=== PATIENT | male | born 1985 | race Caucasian/White ===

== ENCOUNTER 2018-10-06 17:58 | Inpatient (IN) | payer MEDICAID ==
--- NOTE | 2018-10-06 18:47 | EDPHY ---
H & P Stated Complaint: Hearing voices saying "to hurt myself". - Personal History Current Tetanus Diphtheria and Acellular Pertussis (TDAP): Yes - Medical/Surgical History Hx Asthma: No Hx Chronic Respiratory Disease: No Hx Diabetes: No Hx Cardiac Disease: No Hx Renal Disease: No Hx Cirrhosis: No Hx Alcoholism: No Hx HIV/AIDS: No Hx Splenectomy or Spleen Trauma: No Other PMH: Bipolar. schitzophrenia. - Social History Smoking Status: Current every day smoker Time Seen by Provider: 10/06/18 18:38 HPI/ROS: CHIEF COMPLAINT: "The voices are telling me to hang myself" HISTORY OF PRESENT ILLNESS: 33-year-old homeless male history of schizophrenia walked to the ER complaining of increasing auditory hallucinations telling him to hang himself. He feels that if he leaves the ER he will act on these hallucinations. He denies attempt. Has remote history of suicide attempt. He has been compliant with Zyprexa. He denies: Chest pain, headache, visual hallucination, nausea, vomiting, trauma. REVIEW OF SYSTEMS: 10 systems reviewed and negative with the exception of the elements mentioned in the history of present illness PAST MEDICAL & SURGICAL HISTORY: Schizophrenia SOCIAL HISTORY:Homeless. Denies alcohol or drug use PHYSICAL EXAM (Prior to examination, patient consented to physical exam, hands were washed and my usual and customary physical exam procedures followed) 1) GENERAL: poorly kept, alert and oriented. Appears to be in no acute distress. 2) HEAD: Normocephalic, atraumatic 3) HEENT: Pupils equal, round, reactive to light bilaterally. Sclera anicteric. Nasopharynx, oropharynx, clear, no lesions. MoistDry mucous membranes. Ears bilaterally with normal tympanic membranes. 4) NECK: Full range of motion, no meningeal signs. 5) LUNGS: Clear auscultation bilaterally, no wheezes, no rhonchi, no retractions. 6) HEART: Regular rate and rhythm, no murmur, no heave, no gallop. 7) ABDOMEN: No guarding, no rebound, no focal tenderness, negative McBurney's, negative Moreira's, negative Rovsing's, negative peritoneal sign, 8) MUSCULOSKELETAL: Moving all extremities, no focal areas of tenderness, no obvious trauma. No peripheral edema or discoloration. 9) BACK: No CVA tenderness, no midline vertebral tenderness, no fluctuance, no step-off, no obvious trauma, no visual or palpable abnormality. 10) SKIN: No rash, no petechiae. 11) Psychiatric: Patient is oriented X 3, there is no agitation. Fixed facial expression, under active physical activity DIFFERENTIAL DIAGNOSIS: In no particular order including but not limited to suicidal ideation, homicidal ideation, hallucination (Carola Santiago) Constitutional: Initial Vital Signs Temperature (C) 36.5 C 10/06/18 18:03 Heart Rate 106 H 10/06/18 18:03 Respiratory Rate 16 10/06/18 18:03 Blood Pressure 116/82 H 10/06/18 18:03 O2 Sat (%) 96 10/06/18 18:03 O2 Delivery Mode Room Air Allergies/Adverse Reactions: No Known Allergies Allergy (Verified 10/07/18 11:58) Home Medications: Medication Instructions Recorded OLANZapine [Zyprexa] 20 mg PO HS 10/06/18 Medical Decision Making ED Course/Re-evaluation: 6:45 p.m.: In Consultation with Dr. Rafael Hubbard patient has been placed on M1 hold as he endorses active suicidal ideation with plan to hang himself. Care of patient under supervision of secondary supervising physician Dr Rafael Hubbard with whom I discussed case. Midnight: Care turned over to Dr. Dennis Otero. (Carola Santiago) 0700AM: No acute events overnight. Signed over to Dr. Watt. (Dennis Otero ) I did not see this patient while he was in the emergency department. However his care was discussed with the PA while the patient was in the department. I agree with treatment plan and management (Rafael Hubbard) Other Provider: Assumed care of this patient at 7:00 a.m., change of shift, from Dr. Dennis Otero. We are awaiting an eval. Patient is currently on an M1 hold. 11:45Informed by Mohinder with TLC the patient has been accepted at [address] [place] [address], [address]. Giovany Crocker accepting physician. (Raafela Watt) - Data Points Laboratory Results: Laboratory Results 10/06/18 18:45 10/06/18 18:45 Medications Given: Nicotine Polacrilex (Nicorette) 2 mg B Q1HR PRN PRN Reason: Nicotine withdrawal Stop: 04/05/19 12:53 Last Admin: 10/09/18 09:45 Dose: 2 mg Olanzapine (Zyprexa Zydis) 15 mg PO HS GREGORY Stop: 04/06/19 20:59 Last Admin: 10/09/18 20:42 Dose: 15 mg Discontinued Medications Olanzapine (Zyprexa Zydis) 10 mg PO HS GREGORY Stop: 04/06/19 20:59 Last Admin: 10/08/18 19:59 Dose: 10 mg Departure - Departure Disposition: [facility] IP Clinical Impression: Schizophrenia, Suicidal ideation Condition: Fair
[2018-10-06 19:13] LABS: PLATELET COUNT 199 10^3/uL (150-400)
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
--- NOTE | 2018-10-07 12:48 | ASMTTCLDSP ---
TLC Discharge Disposition Disposition: Answers: Admit Disposition Notes: Notes: Admit 3N. Discharge Concerns/Recommendations: Notes: In consultation with [facility] ED physician, Rafaela Watt MD and on-call psychiatrist, Giovany Crocker MD, both concurred that pt appears to meet 27-65 criteria requiring psychiatric hospitalization as pt appears to be at risk of harm to self due to a mental illness condition. Pt was given the 3N prohibited belongings list while in the ED. Was patient given the Answers: Yes Inpatient Behavioral Health Prohibited Belongings List while in the ED? For inpatient Giovany Crocker MD admission, the following psychiatrist agreed to accept patient for admission to Behavioral Health ([facility]): Type of Hold: Answers: M1/72-hour Hold Hold initiated by: Answers: ED Physician Date Signed: 10/07/2018 12:48 PM Electronically Signed By:Mohinder Zurita
[2018-10-07] MEDS ORDERED: OLANZapine DISINTEGR 10 MG TAB PO PRN (12:54)
[2018-10-07] MEDS ORDERED: MAGNESIUM HYDROXIDE 30 ML UDCUP PO PRN (12:54)
[2018-10-07] MEDS ORDERED: MAG HYDROX/AL HYDROX/SIMETH 30 ML UDCUP PO PRN (12:54)
[2018-10-07] MEDS ORDERED: ACETAMINOPHEN 325 MG TAB PO PRN (12:54)
[2018-10-07] MEDS ORDERED: LORazepam 0.5 MG TAB PO PRN (12:54)
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
[2018-10-08] MEDS: NICOTINE POLACRILEX 2 MG GUM B PRN (08:59)
--- NOTE | 2018-10-08 09:09 | ASMTBHMTP ---
Master Treatment Plan Master Treatment Plan Answers: Depressed Mood with for: Suicidal Ideation Date: 10/08/2018 Diagnosis on Admission: Schizoaffective Disorder, depressive type 295.70 Expected length of stay: 3-5 Days Reason for admission: Notes: Per TLC Evaluation - Pt. is a 33 year old, homeless, unemployed, male with reported history of schizoaffective disorder - depressed type, PTSD, and marijuana use, self presented last evening to [facility] ED and was then placed on M1 hold by ED provider which noted "Alfred complaining of audio hallucinations telling him to hang himself and wants to act on these hallucinations. He is an imminent danger to himself". At frequent times during the interview, pt appeared to be responding to internal stimuli and acknowledged he was still hearing voices telling him to kill himself. Patient's stated presenting problems: Notes: Pt reports he was "feeling suicidal" adding he was thinking of "jumping in front of traffic". Patient's goals for treatment: Notes: "To not feel that way anymore" Patient's strengths: Notes: "Cook good", and "get place to place really good". Identify supports outside of hospital: Notes: "No one" Discharge criteria: Notes: Suicidal ideation will resolve and patient will have a plan to safely manage recurrent suicidal ideation. Initial disposition plan/considerations: Notes: "Need to go home to [place] to see my family" Master Treatment Plan Required Signatures Psychiatrist signature: Answers: Psychiatrist: RN on-shift signature: Answers: RN: Patient signature: Answers: Patient: Date Signed: 10/08/2018 09:09 AM Electronically Signed By:Ashanti Borja
--- NOTE | 2018-10-08 09:48 | PDMN ---
Medical Necessity Medical [place] [id number] Schizophrenia Spectrum Disorders, Adult: Inpatient Care: 33 yo w/ schizoaffective d/o, depressive type, risk of harm to self, on M1 hold, pt is homeless.
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
--- NOTE | 2018-10-08 11:22 | ASMTCMCOM ---
CM Note CM Note Notes: Pt and CC completed MTP and placed in pt's chart. Pt. denied any current legal issues. Pt. denied all alcohol use. Pt. reports smoking THC "almost everyday" adding he last smoking on . Pt. denied all other substance use. Pt. reports his last hospitalization was "over a year ago...June 2017" adding it was in [place]. Pt. denied HI, AVH and paranoia. Pt. reports SI, rating it a "6 or 7" out of 10, with no plan and contracts for safety. Pt. stated sitting on his hands or distracting himself helps with his SI. Pt. stated he plans to travel back to [place] to see family. Pt. stated he will be able to afford a bus ticket on the first of the month with his SSI check. Pt. presents as alert, calm, good eye contact, distracted at times, and cooperative. Staff report pt. sleeping 7.5 hours and being medication compliant. Pt. attended treatment team meeting this morning and stated he does not want CC to secure follow up appointments in [place], stating he will be leaving the state soon and with follow up in [place]. Date Signed: 10/08/2018 11:21 AM Electronically Signed By:Ashanti Borja
[2018-10-08] MEDS ORDERED: OLANZapine DISINTEGR 10 MG TAB PO SCH (21:00)
[2018-10-09] MEDS ORDERED: OLANZapine DISINTEGR 10 MG TAB PO SCH (08:11)
--- NOTE | 2018-10-09 08:16 | SOAPPROG ---
SOAP Progress Note Assessment/Plan: Assessment: Major Depressive Disorder, Severe, with mood congruent psychotic features. Homelessness. Improvement noted (see subjective/objective note). Patient could benefit from continued inpatient hospitalization for crisis stabilization , safety, and medication evaluation. Consider discharge tomorrow. Plan: 1. Psychotropic medications: After reviewing options, risks, and benefits patient agrees to continue current medications with following changes: Increase Zyprexa Zydis to 15 mg po QHS. No other medication changes at this time as more time is needed to determine ongoing tolerability and efficacy. Plan is to continue to observe patient for response and side effects from medications, and ongoing monitoring and evaluation. 2. Review with patient informed consent and recommendations for psychotropic medication treatment listed below 3. Labs: no additional labs at this time 4. Therapy: continue milieu and group therapy 5. Further investigation including gathering information from patients relatives and review of past case records to inform treatment plan. 6. Safety/Wellness plan and follow-up outpatient appointments to be established prior to discharge. Next steps are for patient to meet with manager wound care to plan a safe discharge plan and establish outpatient services for ongoing treatment. 7. Confer with inpatient treatment team regarding treatment plan. 8. Psychosocial stressors addressed through continuous pillowcase cutter. 9. Legal status: M1 10. Consider discharge on Saturday if patient is in stable condition, safe, and has a safe discharge plan. 11. Substance abuse interventions: cannabis PSYCHOTROPIC MEDICATION TREATMENT INFORMED CONSENT and RECOMMENDATIONS: Review nature of condition, diagnosis, and prognosis. Review nature and purpose of psychotropic medication treatment. Review type of psychotropic medications being ordered. Review risk and benefits of psychotropic medication treatment. Review probable length of time patient will need to take medications. Review risk and benefits of not undergoing psychotropic medication treatment. Review alternative treatments to psychotropic medications. Review psychotropic medications contraindications, drug-drug interactions, side effects, and importance of reporting any side effects to a psychiatric provider or nurse during inpatient hospitalization, and upon discharge to patients psychiatric outpatient provider, primary care provider, or other health geriatric personal care aide. Review importance of asking a nurse, psychiatric provider, or primary care provider any questions or problems concerning the psychotropic medications. Verify patient understands the information that has been provided, and understands, accepts, and agrees to psychotropic medications. Review patients safety plan and importance of patient to report to staff while hospitalized if patient is ever a danger to self/others, or unable to care for self, and upon discharge, the importance for patient to contact [facility] or [facility], or go to the nearest emergency room, if patient is ever a danger to self/others, or unable to care for self. Recommend that upon discharge patient establish medication management treatment with a psychiatric provider, establishes routine therapy appointments, and follow-up with primary care provider. Verify patient understands and agrees to these recommendations. 10/09/18 08:15 Subjective: Following up with patient for evaluation of depression, psychosis, and safety. Patient reports, "Feeling better, not as depressed." Patient expresses the following psychiatric symptoms moderate depression. Patient reports taking medications as prescribed, and describes response to medications as fair. Patient does not report undesirable side effects from the medications, and agrees to continue current medications, and agrees to increase Zyprexa Zydis to 15 mg po QHS. Patient describes getting 8 hours of sleep. Objective: Vital Signs Temp Pulse Resp BP Pulse Ox 36.7 C 68 16 115/69 96 10/09/18 06:00 10/09/18 06:00 10/09/18 06:00 10/09/18 06:00 10/09/18 06:00 NURSING REPORT: Consulted with nursing for update on patients progress in treatment. Nurses report patient is engaged in treatment, is attending groups, slept 8 hours, expresses the following psychiatric symptoms: depression, exhibits the following psychiatric symptoms: none, is eating all meals, is agreeable to medications and taking as prescribed with no report of side effects , with no s/s of EPS/akathisia, and denies SI/HI, denies A/V hallucinations, and denies delusions. MSE: The patient is a well-nourished male looking stated chronological age. Attire is appropriate dress is casual. Grooming status is appropriate. Ambulation is independent. Gait is normal and coordinated. Posture is normal and relaxed. Eye contact is appropriate. Motor activity is appropriate with purposeful, organized, coordinated movements; with no involuntary movements. Attitude is cooperative. Patient appears attentive and relates well to this interviewer. Language production is spontaneous. R/R/V normal. Articulation is clear. Patient reports mood as depressed with congruent affect. Patients thought process is linear and logical with no signs of thought disorder. Patient does not report suicidal/homicidal thoughts, ideas, or plans. Patient denies auditory, visual hallucinations. Patient does not report delusions. Patient does not appear to be attending to internal stimuli. Patients attention and concentration are adequate. Patient is oriented to person, place , time. Patients insight is fair. Patients judgment is fair. SUBSTANCE ABUSE BRIEF INTERVENTION: Brief intervention regarding the risks of cannabis abuse is provided to patient with goal to reduce the risk of harm that could result from the continued use of cannabis, with the general aim to investigate the problem, raise awareness of problem, develop a solution with the patient, recommend a specific change or activity, and motivate the patient toward change. Assess substance abuse behavior and give supportive advice about harm reduction, recommend a reduction in hazardous/at-risk consumption patterns, and facilitate referrals for additional specialized treatment with out of school hours care worker. Intermediate goal is for the patient to quit and attend outpatient substance abuse treatment. Intervention focus on intermediate goals to allow for more immediate success in the treatment process to keep the patient motivated. Review following with patient: Cannabis use risks: Short- term use: impaired short-term memory, impaired motor coordination, altered judgement, in high doses paranoia and psychosis. Long-term use addiction, diminished life satisfaction and achievement, symptoms of chronic bronchitis, and increased risk of chronic psychosis disorders if predisposition to such disorders. In withdrawal anger, aggression irritability, anxiety and nervousness, decreased appetite or weight loss, restlessness, and sleep difficulties with strange dreams. OUTPATIENT SUBSTANCE ABUSE TREATMENT: Patient referred to outpatient provider and treatment for continued treatment related to substance abuse. - Time Spent With Patient Time Spent With Patient: 15 minutes, met with patient individually. - Pending Discharge Pending Discharge Within 24 Hours: Yes Pending Discharge Within 48 Hours: No Pending Discharge Date: 10/10/18 Pending Discharge Time: 11:00 ICD10 Worksheet Patient Problems: Problems Problem Status Onset Unspecified psychosis Acute Major depressive disorder Chronic PTSD (post-traumatic stress disorder) Chronic
[2018-10-09] MEDS: NICOTINE POLACRILEX 2 MG GUM B PRN (09:45)
--- NOTE | 2018-10-09 13:34 | ASMTCMCOM ---
CM Note CM Note Notes: The client reported that he is "traveling through" and plans to go to [place] upon discharge. He was encouraged to follow up with providers where he settles. The patient rates himself a 6/10 on the suicide scale. He requested the dates/times for walk-in support at [facility]. According to [facility] staff, he is completing 100% of his meals. He slept "9" hours overnight. He is medication compliant. He is attending groups; appropriate and engaged in the milieu. Date Signed: 10/09/2018 01:34 PM Electronically Signed By:Emilee Farris
[2018-10-10 06:52] VITALS: BP 111/70
[2018-10-10] MEDS: NICOTINE POLACRILEX 2 MG GUM B PRN (10:44)
--- NOTE | 2018-10-10 12:38 | BDS ---
REASON FOR ADMISSION: From the ED note dated 10/06/2018, patient, homeless male with history of schizophrenia, walked to the ER complaining of increasing auditory hallucinations telling him to hang himself. The patient was admitted involuntarily on an M1 hold due to being a danger to himself. The patient was admitted for safety, crisis stabilization, and medication management. ADMITTING DIAGNOSES: 1. Major depressive disorder, severe, with mood congruent psychotic features. 2. Posttraumatic stress disorder. 3. Cannabis use disorder, mild dependence. 4. Homelessness. ADMISSION PHYSICAL EXAM: Patient was seen for an Internal Medicine consultation on 10/07/2018, for medical clearance for inpatient psychiatric hospitalization and treatment. The patient was medically cleared for inpatient psychiatric hospitalization and treatment. For further details, please refer to consultation note dated 10/07/2018. ADMISSION LABS: From the 10/06/2018: 1. CBC within normal limits, except white blood cells were elevated at 9.93. Neutrophils were elevated at 75.6. Absolute neutrophils were elevated at 7.5. 2. BMP within normal limits. 3. Hemoglobin A1c within normal limits at 5.1. 4. Liver function within normal limits. 5. Lipid panel within normal limits, except LDL cholesterol calculated was elevated at 130. Non-HDL cholesterol was elevated at 144. 6. Toxicology screen nonnegative for THC, negative for all other substances screened, and negative for ethyl alcohol. MAJOR PROCEDURES OR TESTS: None. HOSPITAL COURSE: The most prominent symptoms and behaviors while the patient was here were reports of severe depression accompanied by command auditory hallucinations. Treatment modalities utilized were milieu and group therapy. Patient reported good response from Zyprexa 20 mg p.o. q.h.s. in the past, and Zyprexa Zydis 10 mg p.o. q.h.s. was started and titrated to 20 mg p.o. q.h.s. at time of discharge. Zyprexa was tolerated with no report of side effects and with good response. The patient has improved considerably, with no signs of psychiatric symptoms and no psychiatric symptoms expressed at time of discharge. The patient reports he has improved since admission, states to be in stable condition, feels safe to discharge, and he contracts for safety. Patient's response to treatment was good. There were no adverse or unexpected results of treatment. The patient was safe throughout his stay, active in treatment, engaged in groups, and was appropriate with staff and other patients. The patient met with the treatment team prior to discharge to assess readiness to discharge and review discharge plan. The treatment team consensus is the patient is in stable condition, has a safe discharge plan, and is ready to discharge today. CONDITION ON DISCHARGE: Patient is in stable condition and is no longer a danger to self or others, and is not gravely disabled due to mental illness. Patient is no longer in need of inpatient level of care, and can be safely and effectively treated within the community. The patients level of risk at time of discharge is low. MSE: The patient is casually dressed and with good hygiene , and looks stated age. Patient is sitting, posture is upright, and position is relaxed. Patient appears awake, alert, and responds appropriately and reasonably during interview. Patient is engaged, relates well to interviewer, and emotional facial expression is appropriate to situation and changes appropriately with topic. Patient is cooperative, makes comfortable eye contact , and movements are voluntary, deliberate, coordinated, and smooth and even with no inappropriate movements. Patient makes laryngeal sounds effortlessly and shares conversation appropriately; pace of conversation is appropriate, and stream of talking is fluent; articulation is clear and understandable; word choice is effortless and appropriate for education level; completes sentences, occasionally pausing to think; rate and volume are appropriate for interview and setting. Patient reports mood as euthymic. Patients affect is stable with full variable range, congruent with mood, and appropriate to speech and circumstances. Patient has linear and logical thinking, with no loose associations, tangential thought, thought blocking, concrete thinking, or any other signs of formal thought disorder. Patient denies suicidal and homicidal ideation, and denies hallucinations and delusions. Patient appears to be a reliable historian with sound judgement and good insight into current condition. Patient has no apparent dysfunction in recent or remote memory noted , and no evidence of gross cognitive dysfunction noted at any point during the interview. DISCHARGE DIAGNOSES: 1. Major depressive disorder, severe, with mood congruent psychotic features. 2. Posttraumatic stress disorder. 3. Cannabis use disorder, mild dependence. 4. Homelessness. CURRENT MEDICATIONS: After reviewing options, risks and benefits with the patient, the patient agrees to continue Zyprexa 20 mg p.o. q.h.s. Patient requests a prescription for this medication at time of discharge. A prescription for 30 days is provided. The prescription is reviewed with the patient at time of discharge to ensure accuracy and patient understanding. DISPOSITION: Patient left hospital independently and voluntarily and plans to stay with his friend in [place], [place], and then next week plans to move to [place] to be near his family. FOLLOWUP: children's program coordinator reports the appropriate outpatient follow-up services have been established and outpatient appointments have been scheduled. The patient received written instructions with times and dates of outpatient follow-up appointments. The following follow-up recommendations were provided to the patient at discharge: Continue psychotropic medications as prescribed and attend appointments as scheduled. Report any side effects to a psychiatric outpatient provider, a primary care provider, or other health day care provider. Address any questions or problems concerning the psychotropic medications with a psychiatric outpatient provider, a primary care provider, or other health day care provider. Contact [facility] or [facility], or go to the nearest emergency room, if you are ever a danger to yourself/others, or unable to care for yourself. As soon as possible, establish a routine medication management treatment with a psychiatric provider, establish routine therapy appointments, and follow-up with a primary care provider. SUBSTANCE ABUSE BRIEF INTERVENTION: Brief intervention regarding the risks of cannabis abuse is provided to patient with goal to reduce the risk of harm that could result from the continued use of cannabis, with the general aim to investigate the problem, raise awareness of problem, develop a solution with the patient, recommend a specific change or activity, and motivate the patient toward change. Assess substance abuse behavior and give supportive advice about harm reduction, recommend a reduction in hazardous/at-risk consumption patterns, and facilitate referrals for additional specialized treatment with clinical care leader. Intermediate goal is for the patient to quit and attend outpatient substance abuse treatment. Intervention focus on intermediate goals to allow for more immediate success in the treatment process to keep the patient motivated. Review following with patient: Cannabis use risks: Short- term use: impaired short-term memory, impaired motor coordination, altered judgement, in high doses paranoia and psychosis. Long-term use addiction, diminished life satisfaction and achievement, symptoms of chronic bronchitis, and increased risk of chronic psychosis disorders if predisposition to such disorders. In withdrawal anger, aggression irritability, anxiety and nervousness, decreased appetite or weight loss, restlessness, and sleep difficulties with strange dreams. OUTPATIENT SUBSTANCE ABUSE TREATMENT: Patient referred to outpatient provider and treatment for continued treatment related to substance abuse. LEGAL COURSE: The patient was admitted involuntarily on an M1 hold. Patient discharged today independently and voluntarily. ATTITUDE AT TIME OF DISCHARGE: The patients attitude was positive at time of discharge, and patient reports looking forward to discharging today. The patient reports he feels safe to discharge, is no longer a danger to himself or others, is in stable condition, and contracts for safety. Patient states he will continue medications as prescribed, and establish medication management treatment with an outpatient provider after discharge. Patient reports he understands the information that has been provided to him, and he understands, accepts, and agrees to psychotropic medications. Patient describes internal protective factors as the coping skills he has learned while hospitalized here, and he plans to continue to practice these coping skills after discharge. LABS AND STUDIES: There were no pending labs or studies at time of discharge. ADVANCE DIRECTIVES: There were no advance directives on file, and patient was full code during this hospitalization. The following psychotropic medication treatment informed consent and recommendations were provided to the patient at time of discharge. Patient reports he understands, accepts, and agrees to the information that has been provided. PSYCHOTROPIC MEDICATION TREATMENT INFORMED CONSENT and RECOMMENDATIONS: Review nature of condition, diagnosis, and prognosis. Review nature and purpose of psychotropic medication treatment. Review type of psychotropic medications being prescribed. Review risk and benefits of psychotropic medication treatment. Review probable length of time will need to take medications. Review risk and benefits of not undergoing psychotropic medication treatment. Review alternative treatments to psychotropic medications. Review psychotropic medications contraindications, side effects, and importance of reporting any side effects to a psychiatric provider, primary care provider, or other health day care provider. Review importance of asking a psychiatric provider or primary care provider any questions or problems concerning the psychotropic medications. Review safety plan and the importance to contact [facility] or [facility] , or go to the nearest emergency room, if ever a danger to yourself/others, or unable to care for yourself. Recommend upon discharge to establish routine medication management treatment with a psychiatric provider, establish routine therapy appointments, and follow-up with a primary care provider. Verify patient understands, accepts, and agrees to the information that has been provided. /[id number]/MODL MTDD
== END 2018-10-10 11:05 | disposition home or self-care (01) | DRG 751 ==
LOC: BBEH 10-07 12:45
PROVIDERS: ADMIT Psychiatry & Neurology Psychiatry; ATTEND Registered Nurse
DX: F32.3 Major depressive disorder, single episode, severe with psychotic features (principal); F12.10 Cannabis abuse, uncomplicated; F43.10 Post-traumatic stress disorder, unspecified; F17.200 Nicotine dependence, unspecified, uncomplicated; Z59.0 Homelessness
CPT/HCPCS: 80305; G0480

== ENCOUNTER 2018-10-13 17:48 | Emergency (ER) | payer MEDICAID ==
[2018-10-13 18:51] LABS: PLATELET COUNT 195 10^3/uL (150-400)
--- NOTE | 2018-10-13 19:48 | EDPHY ---
H & P Smoking Status: Current every day smoker Time Seen by Provider: 10/13/18 17:53 HPI/ROS: HPI Schizophrenia. Hearing voices. Suicidal ideation. 33-year-old male on foot. He has a history of schizophrenia. He is compliant with his medications. He takes Zyprexa. He reports that for the last 2 weeks he has been hearing voices abdomen telling him to kill himself. This has been worse over the last few days with the holidays. ROS: Constitutional: No fever, no chills. No weakness. Eyes: No discharge. No changes in vision. ENT: No sore throat. No nasal congestion or rhinorrhea. Respiratory: No cough. No shortness of breath. Cardiac: No chest pain, no palpitations. Gastrointestinal: No abdominal pain, no vomiting, no diarrhea. Genitourinary: No hematuria. No dysuria or increased frequency with urination. Musculoskeletal: No back pain. No neck pain. No myalgias or arthralgias. Skin: No rashes. Neurological: No headache. No focal weakness or altered sensation. Past medical history: Schizophrenia. Social history: Here by himself. Nonsmoker. Denies IV drugs and street drugs. No alcohol. Physical Exam: General Appearance: Alert, no distress. This patient is responding to questions appropriately and in full sentences. This patient appears well- hydrated and well-nourished. Eyes: Pupils equal and round no pallor or injection. No lid edema, erythema or injection. Respiratory: There are no retractions, lungs are clear to auscultation with good air movement bilaterally. Cardiovascular: Regular rate and rhythm. No murmur. Gastrointestinal: Abdomen is soft and nontender, no masses, bowel sounds normal. No focal tenderness at McBurney's point. No Moreira sign. Neurological: Motor sensory function is grossly intact. Cranial nerves are normal. Gait is normal. Skin: Warm and dry, no rashes. Musculoskeletal: Neck is supple and nontender. Extremities are symmetrical. All joints range without pain or impingement. Psychiatric: No agitation. Flat affect. Database: EKG: Imaging: Procedures: Emergency department course: Triage vital signs reviewed. He was tachycardic in triage. He is not tachycardic on my exam. Vital signs are otherwise normal. The patient was medically cleared for behavioral health evaluation after I saw him. His blood work and urinalysis tox screens were reviewed by myself. 8:30 p.m., the patient has been seen and evaluated by Behavioral Health. They feel that there is a malingering component to his presentation. However, the patient states that if he is discharged he will commit suicide. They are currently searching for placement. The patient was recently admitted and treated on . 10:00 p.m., the patient is awaiting admission for psychiatric management. Care turned over to Dr. Dennis Otero at this time. Differential Diagnosis: The differential diagnosis on this patient includes but is not limited to schizophrenia, suicidal ideation, hallucinations. This represents a partial list of diagnoses considered. These considerations are based on history, physical exam, past history, reassessment and diagnostic testing. (Suzanne Lala) Constitutional: Initial Vital Signs Temperature (C) 37.1 C 10/13/18 17:56 Heart Rate 120 H 10/13/18 17:56 Respiratory Rate 18 10/13/18 17:56 Blood Pressure 125/88 H 10/13/18 17:56 O2 Sat (%) 94 10/13/18 17:56 O2 Delivery Mode Room Air Allergies/Adverse Reactions: No Known Allergies Allergy (Verified 10/13/18 17:56) Home Medications: Medication Instructions Recorded Acetaminophen [Tylenol 325mg (*)] 650 mg PO Q4HRS PRN tab 10/10/18 OLANZapine [Zyprexa] 20 mg PO HS 30 Days #30 tablet 10/10/18 Medical Decision Making ED Course/Re-evaluation: 2341: Patient accepted at [facility]. Dr. East. Appropriate transfer be set up. (Dennis Otero) - Data Points Laboratory Results: Laboratory Results 10/13/18 18:36 10/13/18 18:36 Medications Given: Discontinued Medications Olanzapine (Olanzapine) 20 mg PO HS GREGORY Stop: 04/11/19 20:59 Last Admin: 10/13/18 21:23 Dose: 20 mg Departure - Departure Disposition: Other Psych, Not [place] Clinical Impression: Schizophrenia, Situational depression Condition: Fair Referrals: NONE *PRIMARY CARE P,. [Primary Care Provider] - As per Instructions
--- NOTE | 2018-10-13 20:33 | ASMTLCPROG ---
Notes Note: Notes: This 33 y/o male voluntarily came to the Ed complainig of hearing voices telling him to kill himself. Hwas just discharged from in pt psych on 10/10/2018. Pt presents with the same complaint. Date Signed: 10/13/2018 08:32 PM Electronically Signed By:Bailee Gil
[2018-10-13] MEDS ORDERED: OLANZapine 5 MG TAB PO SCH (21:00)
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
--- NOTE | 2018-10-13 22:44 | ASMTTCLDSP ---
TLC Discharge Disposition Disposition: Answers: Transfer Disposition Notes: Notes: Pt wll be transferred to [facility] as a Voluntary pt Was patient given the Answers: Not applicable Inpatient Behavioral Health Prohibited Belongings List while in the ED? For Transfers, Accepting [facility] Facility: For Transfers, Accepting Keely East MD Psychiatrist: For Transfers, Reason 3N at capacity Patient is Being Transferred: Date Signed: 10/13/2018 10:43 PM Electronically Signed By:Bailee Gil
[2018-10-14 00:55] VITALS: BP 116/68
== END 2018-10-14 00:57 ==
DX: F20.9 Schizophrenia, unspecified (principal); F43.21 Adjustment disorder with depressed mood
CPT/HCPCS: 80305; G0480